=== PATIENT | female | born 1970 | race Caucasian/White ===

== ENCOUNTER 2024-11-18 06:37 | Day surgery (SDC) | payer BC, SELFPAY ==
[2024-11-18 11:08] LABS: COVID-19 Antigen Negative (Negative)
== END 2024-11-18 13:41 ==
LOC: GI 06:37
PROVIDERS: ATTENDING PHYSICIAN Internal Medicine Gastroenterology
DX: Z12.11 Encounter for screening for malignant neoplasm of colon (principal); D12.2 Benign neoplasm of ascending colon; Z86.0100 Personal history of colon polyps, unspecified; Z83.719 Family history of colon polyps, unspecified; Z80.0 Family history of malignant neoplasm of digestive organs
CPT/HCPCS: 45385; 88305; 87811